=== PATIENT | female | born 1995 | race Caucasian/White ===

== ENCOUNTER 2017-09-10 14:18 | Emergency (ER) | payer BC ==
[~2017-09-10] VITALS: Ht 162.6 cm; Wt 61.2 kg
[2017-09-10 14:22] VITALS: BP_SYST 124
--- NOTE | 2017-09-10 14:35 | NUR ---
Patient to ER bed 3 to gown for evaluation. Side rails up. Report received from Marta GALEANA.
[2017-09-10] MEDS ORDERED: NACL 0.9% 1,000 ML IV ONE (14:45)
[2017-09-10] MEDS ORDERED: ASPIRIN 81 MG TAB.CHEW PO ONE (14:45)
--- NOTE | 2017-09-10 14:45 | NUR ---
Pt bib family c/o syncope.Pt has no head or neck injury. Pt has h/o cardiac workup for previous SOB and CP.Pt has no acute distress noted.
[2017-09-10 15:03] LABS: BILIRUBIN,URINE NEGATIVE (NEGATIVE); BLOOD, URINE NEGATIVE (NEGATIVE); CLARITY/URINE CLEAR (CLEAR); COLOR,URINE YELLOW (YELLOW); GLUCOSE,URINE NEGATIVE (NEGATIVE); KETONES,URINE NEGATIVE (NEGATIVE); LEUKOCYTE ESTERASE ,URINE 2+ (NEGATIVE); NITRITE, URINE NEGATIVE (NEGATIVE); PROTEIN URINE NEGATIVE (NEGATIVE); UROBILINOGEN,URINE 0.2 (0.2-1.0)
--- NOTE | 2017-09-10 15:10 | NUR ---
Pt drawn. Pt ambulated to restroom steady gat. Pt tolerated well. Pt denies SOB or palpations upon returning to bed. Continuing to monitor.
[2017-09-10 15:16] LABS: BACTERIA,URINE FEW /HPF (None Seen); RBC,URINE 0-3 /HPF (0-3)
[2017-09-10 15:17] LABS: HEMATOCRIT 39.5 % (36-48); HEMOGLOBIN 13.5 g/dL (12.0-16.0); LYMPHOCYTES # (AUTO) 2.5 K/uL (1.0-5.5); LYMPHOCYTES % (AUTO) 22.3 % (20.5-51.5); MEAN CORPUSCULAR HEMOGLOBIN 33 pg (27-31); MEAN CORPUSCULAR HGB CONC 34 % (32-36); MEAN CORPUSCULAR VOLUME 97 fL (79.0-98.0); MONOCYTES % (AUTO) 8.6 % (1.7-9.3); NEUTROPHILS # (AUTO) 7.4 K/uL (1.8-7.7); NEUTROPHILS % (AUTO) 67.4 % (40.0-70.0); PLATELET COUNT (AUTO) 287 K/uL (130-430); RED BLOOD CELL COUNT(AUTO) 4.07 MIL/uL (4.2-6.2); RED CELL DISTRIBUTION WIDTH 12.2 % (9.0-15.0); WHITE BLOOD COUNT (AUTO) 11.1 K/uL (4.8-10.8)
[2017-09-10 15:19] LABS: BASOPHILS % (AUTO) 0.3 % (0.0-2.0); EOSINOPHILS # (AUTO) 0.2 K/uL (0.0-0.4); EOSINOPHILS % (AUTO) 1.4 % (0.0-4.0)
[2017-09-10] MEDS ORDERED: ASPIRIN 81 MG TAB.CHEW ONE (15:28)
[2017-09-10 15:30] LABS: CREATININE 0.67 mg/dL (0.55-1.30); POTASSIUM 3.8 mmol/L (3.5-5.1)
[2017-09-10 15:31] LABS: INR 1.2 (0.8-1.2); PROTHROMBIN TIME 12.3 SECS (9.5-12.5)
[2017-09-10 15:34] LABS: ALBUMIN 4.3 g/dL (3.4-4.8); TOTAL BILIRUBIN 0.5 mg/dL (0.0-1.0)
[2017-09-10] MEDS ORDERED: cefTRIAXone 1 GM in D5W 50 ML IV ONE (16:00)
--- NOTE | 2017-09-10 16:10 | NUR ---
Pt tolerating medication well.
[2017-09-10] MEDS ORDERED: cefTRIAXone 1 GM VIAL ONE (16:34)
[2017-09-10 17:00] VITALS: BP_SYST 118
--- NOTE | 2017-09-10 17:00 | NUR ---
Patient given written and verbal discharge instructions and verbalizes understanding. ER MD discussed with patient the results and treatment provided. Patient in stable condition. ID arm band removed. IV catheter removed intact and dressing applied, no active bleeding. Rx of ativan given. Patient educated on pain management and to follow up with PMD. Pain Scale 0. Opportunity for questions provided and answered. Medication side effect fact sheet provided.
== END 2017-09-10 17:00 | disposition home or self-care (01) ==
LOC: EDBD 14:18 → SED 14:18
DX: F41.9 Anxiety disorder, unspecified (principal); R55 Syncope and collapse; N39.0 Urinary tract infection, site not specified; J45.909 Unspecified asthma, uncomplicated
CPT/HCPCS: 36415; 71045; 80053; 81000; 82150; 82550; 83690; 84484; 85025; 85610; 85730; 87086; 93005; 96361; 96365; 99285; J0696; J7030

== ENCOUNTER 2018-03-01 21:36 | Emergency (ER) | payer BC ==
[~2018-03-01] VITALS: Ht 160 cm; Wt 61.2 kg
[2018-03-01 21:41] VITALS: BP_SYST 120
[2018-03-01] MEDS: ONDANSETRON 4 MG ODT TAB PO ONE (22:31)
[2018-03-01] MEDS: KETOROLAC TROMETHAMINE 60 MG/2 ML VIAL IM ONE (22:31)
[2018-03-01 22:50] VITALS: BP_SYST 122
== END 2018-03-01 22:50 | disposition home or self-care (01) ==
LOC: SED 21:36
DX: R51 Headache (principal); R11.2 Nausea with vomiting, unspecified; F41.9 Anxiety disorder, unspecified; J45.909 Unspecified asthma, uncomplicated
CPT/HCPCS: 81025; 96372; 99283; J1885; Q0162

== ENCOUNTER 2022-12-12 19:13 | Emergency (ER) | payer BC ==
[~2022-12-12] VITALS: Ht 162.6 cm; Wt 65.3 kg
[~2022-12-12 19:13] MED LIST: METH-634 PO
[2022-12-12 19:30] VITALS: BP_SYST 111; PULSE 69; RESP 18; TEMP 97.7; O2SAT 99
[2022-12-12 19:56] VITALS: BP_SYST 111; PULSE 69; RESP 18; TEMP 97.7; O2SAT 99
== END 2022-12-12 19:56 | disposition home or self-care (01) ==
LOC: SED 19:13
DX: S80.11XA Contusion of right lower leg, initial encounter (principal); J45.909 Unspecified asthma, uncomplicated; Z79.899 Other long term (current) drug therapy; X58.XXXA Exposure to other specified factors, initial encounter; Y93.89 Activity, other specified; Y92.89 Other specified places as the place of occurrence of the external cause; Y99.8 Other external cause status
CPT/HCPCS: 99281

== ENCOUNTER 2023-08-19 14:16 | Emergency (ER) | payer BC ==
[~2023-08-19] VITALS: Ht 162.6 cm; Wt 64.4 kg
[2023-08-19 14:16] VITALS: BP_SYST 126; PULSE 89; RESP 18; TEMP 98.3; O2SAT 100
[2023-08-19] MEDS: IPRATROPIUM/ALBUTEROL SULFATE 3 ML AMPUL.NEB (DUONEB) INH ONE (15:16)
[2023-08-19 15:30] VITALS: O2SAT 100
[2023-08-19 16:09] LABS: INFLUENZA TYPE A Negative (NEGATIVE); INFLUENZA TYPE B NEGATIVE (NEGATIVE)
[2023-08-19] MEDS ORDERED: ALBMDI INH (16:40)
[2023-08-19] MEDS ORDERED: PRED20TA PO (16:40)
== END 2023-08-19 16:46 | disposition home or self-care (01) ==
LOC: SED 14:16
DX: J45.21 Mild intermittent asthma with (acute) exacerbation (principal); Z20.822 Contact with and (suspected) exposure to COVID-19; F41.9 Anxiety disorder, unspecified; Z79.899 Other long term (current) drug therapy
CPT/HCPCS: 36415; 71045; 93005; 94640; 94760; 99285